=== PATIENT | male | born 1995 | race Asian ===

== ENCOUNTER 2019-04-02 19:01 | Emergency (ER) | payer MEDICAID ==
[~2019-04-02] VITALS: Ht 167.6 cm; Wt 59.9 kg
--- NOTE | 2019-04-02 19:10 | NUR ---
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 AAOX4, RR EVEN & UNLABORED. PT IN SEVERE RT SHOULDER PAIN + DISLOCATION. DR. ECHOLS @ BS FOR EVAL.
[2019-04-02] MEDS ORDERED: FENTANYL PF 100MCG/2ML AMPUL ONE (19:16)
[2019-04-02] MEDS ORDERED: FENTANYL PF 100MCG/2ML AMPUL IV ONE (19:30)
--- NOTE | 2019-04-02 19:34 | NUR ---
MEDICATED FOR PAIN. DR. ECHOLS REDUCED RT SHOULDER, PT INDIGO WELL. PLACED RT ARM W/ ARM SLING. WILL CONT TO MONITOR.
--- NOTE | 2019-04-02 19:35 | NUR ---
[employer] OFFICERS AT THE BED SIDE
[2019-04-02] MEDS ORDERED: KETOROLAC TROMETHAMINE 15 MG/ML VIAL ONE (19:56)
[2019-04-02] MEDS ORDERED: KETOROLAC TROMETHAMINE INJ 30 MG/ML VIAL IV ONE (20:00)
[2019-04-02] MEDS ORDERED: CYCLOBENZAPRINE 10 MG TABLET ONE (20:07)
--- NOTE | 2019-04-02 20:19 | NUR ---
Patient discharged to home in stable condition. Written and verbal after care instructions given. Patient verbalizes understanding of instruction. PT WAS PROVIDED W. A R SHOULDER SLING PRIOR TO D/C
[2019-04-02] MEDS ORDERED: CYCLOBENZAPRINE 10 MG TABLET PO ONE (20:30)
[2019-04-02 20:41] VITALS: BP 120/79
== END 2019-04-02 20:15 | disposition home or self-care (01) ==
LOC: ER 19:06
DX: S43.084A Other dislocation of right shoulder joint, initial encounter (principal); R00.0 Tachycardia, unspecified; X50.9XXA Other and unspecified overexertion or strenuous movements or postures, initial encounter; Y93.89 Activity, other specified; Y92.89 Other specified places as the place of occurrence of the external cause; Y99.0 Civilian activity done for income or pay
CPT/HCPCS: 23650; 73030; 96374; 99284; J1885; J3010